=== PATIENT | female | born 1985 | race Caucasian/White ===

== ENCOUNTER 2025-03-05 13:31 | Outpatient (CLI) | payer OTHER, SELFPAY ==
[2025-03-05 14:08] LABS: Hematocrit 44.7 % (37.0-47.0); Hemoglobin 15.3 g/dL (12.0-15.0); Mean Corpuscular HGB Conc 34.2 g/dl (32-36); Mean Corpuscular Hemoglobin 29.1 pg (26-34); Mean Corpuscular Volume 85.1 fl (80-100); Mean Platelet Volume 10.3 fl (7.4-10.4); Platelet Count Result 198 k/mm3 (150-375); Red Blood Count 5.25 M/mm3 (4.2-5.4); Red Cell Distribution Width 12.7 % (11.5-14.5); White Blood Count 7.6 K/mm3 (4.5-10.0)
--- OUTSIDE RECORDS SUMMARY | 2025-03-05 14:12 | XMS_ITS | Encounter Summary ---
Author Organization [facility] Health Address [address] [place] [address] Care Team Providers Care Oil Pump Station Operator Chief Name Role Phone Unavailable Primary Care Provider Unavailabl e Encounter Details Date Type Department Care Team (Late st Contact Info) Description 11/03/2020 Lab Requisition [facility] DermPath Lab [address] [facility] [address] [facility], [place] [address] Raudel White MD [address] [place] [address] Social History Tobacco Use Types Packs/Day Years Used Date Smoking Tobacco: Never Alcohol Use Standard Drinks/Week Comments No 0 (1 standard drink = 0.6 oz pur e alcohol) Comments No Sex and Gender Information Value Date Recorded Sex Assigned at Not on file Legal Sex Female 4:24 PM CDT Gender Identity Not on file Sexual Orientation Not on file documented as of this encounter Plan of Treatment Not on file documented as of this encounter Procedures Procedure Name Priority Date/Time Associated Diagnosis Comments DERMATOPATHOLOGY Routine 10/30/2020 12:0 0 AM FORESTRY INSTRUCTOR documented in this encounter Results * DERMATOPATHOLOGY (10/30/2020 12:00 AM FORESTRY INSTRUCTOR) Case Report Dermatopathology Report Case: [id number] Authorizing Provider: Raudel White MD Collected: 10/30/2020 12:00 AM Ordering Location: [facility] DermPath Lab Received: 11/03/2020 07:00 AM Pathologist: Av Matute MD Specimens: A) - Skin, left mid back B) - Skin, mid lower back C) - Skin, right mid back 12:15 PM FORESTRY INSTRUCTOR DERMATOPATHOLOGY LABORATORY Final Diagnosis Specimen A. SKIN, left mid back: COMPOUND MELANOCYTIC NEVUS (D22.5) Specimen B. SKIN, mid lower back: COMPOUND MELANOCYTIC NEVUS (D22.5) Specimen C. SKIN, right mid back: COMPOUND MELANOCYTIC NEVUS (D22.5) 12:15 PM [facility] D[facility] at 1215 FORESTRY INSTRUCTOR Clinical History A: Nevus. Path# [id number]. B: Nevus. Path# [id number]. C: Nevus. Path# [id number]. 12:15 PM [facility] Gross Description Specimen A: Received is one formalin filled container labeled with the patient's name and designated left mid back. The specimen consists of a shave biopsy measuring [id number], bisected. Jar 0. Specimen B: Received is one formalin filled container labeled with the patient's name and designated mid lower back. The specimen consists of a shave biopsy measuring [id number], bisected. Jar 0. Specimen C: Received is one formalin filled container labeled with the patient's name and designated right mid back. The specimen consists of a shave biopsy measuring [id number], bisected. Jar 0. 12:15 PM [facility] D[facility] Microscopic Description Specimen A. SKIN, left mid back: There are nests of melanocytes at the dermal-epidermal junction and within the dermis. Specimen B. SKIN, mid lower back: There are nests of melanocytes at the dermal-epidermal junction and within the dermis. Specimen C. SKIN, right mid back: There are nests of melanocytes at the dermal-epidermal junction and within the dermis. 12:15 PM [facility] DER[facility]ORY Disclaimer An external and internal positive and negative controls are appropriate for the histochemical, immunohistochemical and immunofluorescence stain(s) in this case (if any), except where stated explicitly. The performance characteristics of the stain(s) cited in this report were developed and its performance characteristic determined by the Dermatopathology Laboratory at [facility], directed by Dr. Faviola Matute. These tests need not be, and therefore are not, approved by the [place] Food and Drug Administration. The tests are used for clinical purposes. Billing Codes Specimen Charges Stain Charges 40726 23428 64190 1 1 1 1 12:15 PM FORESTRY INSTRUCTOR DERMATOPATHOLOGY LABORATORY Embedded Images 12:15 PM FORESTRY INSTRUCTOR DERMATOPATHOLOGY LABORATORY Pathology/Cytology TISSUE SPECIMEN FROM SKIN / Unknown 10/30/2020 11/03/2020 7:00 AM FORESTRY INSTRUCTOR Miscellaneous samples (specimen) TISSUE SPECIMEN FROM SKIN / Unknown 10/30/2020 11/03/2020 7:00 AM FORESTRY INSTRUCTOR Miscellaneous samples (specimen) TISSUE SPECIMEN FROM SKIN / Unknown 10/30/2020 11/03/2020 7:00 AM FORESTRY INSTRUCTOR us Raudel White MD LAB - PATHOLOGY/CYTOLOGY ORDER LUCY Final Result DERMATOPATHOLOGY LABORATORY [facility] - Department of Dermatology [address], [address] [phone] documented in this encounter Visit Diagnoses Not on filedocumented in this encounter
--- OUTSIDE RECORDS SUMMARY | 2025-03-05 14:12 | XMS_ITS | Clinical Summary ---
Author Organization [facility] [employer] Address [address] [place] [address] Care Team Providers Care Pricing Intern Name Role Phone Unavailable Primary Care Provider Unavailabl e Source Comments [facility],non-owned Affiliates and Associated Physician Practices is amultiple site organization consisting of ambulatory clinics and hospital sitesin [place], [place], [place] and [place]. This disclosure is being madepursuant to the Care Everywhere program and may not contain all information available regarding this patient. Last updated 18.[facility] [employer] Allergies No known active allergies Medications * Be aware that medications may not be up to date on this document. Alwaysverify current medications with the patient. Vit-Fe Fumarate-FA ( VITAMIN) 28-0.8 MG tablet Take 1 Tab by mouth once daily Active folic acid (FOLVITE) 1 MG tablet Take 1 mg by mouth once daily Active Active Problems Problem Noted Date Diagnosed Date Monochorionic diamniotic twin gestation in third trimester 04/15/2016 Diet controlled gestational diabetes mellitus (GDM) in third trimester 04/15/2016 Elevated glucose level 03/29/2016 Supervision of high risk in third trim kevin 03/29/2016 Twin gestation in third trimester 03/29/2016 Family History Medical History Relation Name Comments Diabetes Maternal Aunt Diabetes Maternal Grandfather Diabetes Maternal Grandmother Hypertension Maternal Grandmother Diabetes Paternal Aunt type 1 Hypertension Paternal Aunt type 2 Relation Name Status Comments Maternal Aunt Maternal Grandfather Maternal Grandmother Paternal Aunt Social History Tobacco Use Types Packs/Day Years Used Date Smoking Tobacco: Never Alcohol Use Standard Drinks/Week Comments No 0 (1 standard drink = 0.6 oz pur e alcohol) Comments No Sex and Gender Information Value Date Recorded Sex Assigned at Not on file Legal Sex Female 4:24 PM CDT Gender Identity Not on file Sexual Orientation Not on file Last Filed Vital Signs Vital Sign Reading Time Taken Comments Blood Pressure 119/71 05/18/2016 8:40 AM CDT Pulse 92 05/18/2016 8:40 AM CDT Temperature - - Respiratory Rate - - Oxygen Saturation - - Inhaled Oxygen Concentration - - Weight 74.4 kg (164 lb) 04/27/2016 3:48 PM CDT Height 165.1 cm (5' 5) 04/27/2016 3:48 PM CDT Body Mass Index 27.29 04/27/2016 3:48 PM CDT Plan of Treatment Health Maintenance Due Date Last Done Comments LIPID TESTING 1984 MAMMOGRAM 1984 HIV SCREENING 1999 HEPATITIS C SCREENING 09/21/2002 DTAP/TDAP/TD VACCINES (1 - Tdap) 2003 HEPATITIS B VACCINE (1 of 3 - 19+ 3-dose series) 2003 COVID-19 VACCINE (1 - 2023-2 5 season) 2024 DEPRESSION SCREENING 09/19/2024 INFLUENZA VACCINE (Season Ended) 2025 ZOSTER VACCINE (1 of 2) 2034 HIB VACCINE Aged Out No longer eligi ble based on patient's age to complete this topic HPV VACCINE Aged Out No longer eligi ble based on patient's age to complete this topic MENINGOCOCCAL (Group B) VACC INE SHARED DECISION-MAKING Aged Out No longer eligibl e based on patient's age to complete this topic MENINGOCOCCAL GROUPS A/C/Y/W VACCINE Aged Out No longer eligible b ased on patient's age to complete this topic PNEUMOCOCCAL VACCINE Aged Out No long er eligible based on patient's age to complete this topic Insurance [facility]
== END 2025-03-05 13:32 | disposition home or self-care (01) ==
LOC: ANHSURGERY 13:34
PROVIDERS: PCP Family Medicine; Visit Provider Obstetrics & Gynecology
DX: N94.6 Dysmenorrhea, unspecified (principal); Z30.09 Encounter for other general counseling and advice on contraception
CPT/HCPCS: 36415; 85027

== ENCOUNTER 2025-03-07 00:28 | Day surgery (SDC) | payer OTHER, SELFPAY ==
[2025-03-04 14:32] VITALS: BMI 25.0
--- NOTE | 2025-03-04 14:40 | PC.NURSE ---
Report to the Outpatient Waiting Room, entrance under the green pavilion located off [facility], at time _0615_ on date _[phone]_. Planned Procedure Time: _0815_.? Time changes happen often and if your time is changed the preop area will call you the afternoon before. - You and your visitor will be asked to self-screen and do not enter if you have any COVID symptoms. Please call surgeon if you need to reschedule. - A mask is optional within the hospital at this time. Patients may have clear liquids (water, carbonated beverages, clear teas, apple juice) until 3 hours prior to surgery with a maximum of 20 ounces. - No food from midnight until time of surgery and no smoking, or chewing tobacco (or any form of nicotine). No chewing gum, candy or mints. Take only the following medications with a SIP of water on the morning of surgery: __None DO NOT STOP ANY OF YOUR OTHER PRESCRIPTION MEDICATIONS PRIOR TO SURGERY EXCEPT THE FOLLOWING Hold all vitamins and supplements for 3 days per anesthesiologist. Medications to discontinue per physician Date to take last dose Please no make-up, nail ghanaian, hairspray, perfume, deodorant, or body powder the day of surgery.? No jewelry (including any body piercings) or valuables the day of surgery, leave them at home.? Please take a shower or bath the night before, or the morning of, surgery with an antibacterial soap.? Wear comfortable, loose fitting clothing.? - Jewelry must be removed prior to entering the operating room.? Rings and piercings that are not removed may be cut off. - The hospital will not accept responsibility for valuables.? - Please leave all valuables, including medications, at home the day of surgery. If you are going home after surgery, a licensed local flatbed driver must drive you home.? - NO public transportation without another adult if you receive anesthesia. - We recommend that an adult stay with you for 24 hours following discharge. - We also recommend that you do not drive, make important decision, drink alcoholic beverages, or take any drugs that were not prescribed by your health care provider for at least 24 hours after your discharge time. Follow any additional instructions given to you from your surgeon. Telephone instructions given to __Megan___and asked if any additional questions and then verbalized understanding. Patient advised to call surgeon office or pre surgery nurse liaison [phone] if any additional questions.
--- NOTE | 2025-03-05 17:19 | P.HP_ITS ---
H&P: HPI History of Present Illness Date/Time: 03/05/25 17:19 39-year-old 002 female presents today for evaluation treatment of heavy irregular vaginal bleeding as well as permanent sterilization. Currently has an IUD in place, even with this in place bleeding has become heavy and more prolonged. Patient also is interested salpingectomy, discussed the permanence failure rate increased risk of ectopic and regret. Ultrasound has been performed with no significant abnormalities appreciated. Chief Complaint: Menometrorrhagia Review of Systems Review of Systems: All systems reviewed & are unremarkable except as noted in HPI and below PMFSH Past Medical History Medical History Remove/insert IUD Encounter for screening examination for sexually transmitted disease Remove/insert IUD Encounter for IUD insertion (07/20/16) Mirena insertion Gestational diabetes Surgical History Surgical History [place] teeth extracted History of (05/21/16) twin /gestational diabetes Family History Family History Grandparent Diabetes mellitus maternal grandmother Social History Social History Smoking status: Never smoker Alcohol intake: never Substance use: never Substance use type: does not use Lack of Transportation: No Lack of Food: Never True Current Housing: I Have Housing Concerned About Future Housing: No Difficulty Paying Gas/Electric Bills: No Difficulty Paying for Meds: No Currently Unemployed: No Education: Bachelor's Degree Difficulty w/ Childcare or Family Care: No Living arrangements: with family Additional living arrangements comments: Occupation/Education: occupation Additional occupation/education comments: marketing Gender identity (if verbalized by the patient): Female Sexual Orientation (if Verbalized by the Patient): Straight or Heterosexual Spiritual care concerns: No Meds Home Medications and Allergies Home Medications ?Medication ?Instructions ?Recorded ?Confirmed ?Type levonorgestrel (Mirena) 1 device intrauterine ONCE 04/27/23 03/04/25 History Allergies Allergy/AdvReac Type Severity Reaction Status Date / Time No Known Allergies Allergy Verified 03/04/25 14:31 Exam Const: General: cooperative and healthy appearing Resp: Effort & Inspection: normal respiratory effort Auscultation: clear to auscultation bilaterally Cardio: Rate: regular rate Rhythm: regular rhythm GI: Inspection: normal to inspection Auscultation: normal bowel sounds : External Female Exam: normal external appearance Speculum Exam - Vagina: normal appearance of the vagina Speculum Exam - Cervix: normal appearance of the cervix Bimanual exam- vagina & uterus: normal bimanual exam Bimanual Exam- Adnexa, other: normal adnexae Assessment and Plan Assessment and plan (1) Menometrorrhagia: Code(s): N92.1 - Excessive and frequent menstruation with irregular cycle Status: Acute (2) Dysmenorrhea: Code(s): N94.6 - Dysmenorrhea, unspecified Status: Acute (3) IUD (intrauterine device) in place: Code(s): Z97.5 - Presence of (intrauterine) contraceptive device Status: Acute (4) Encounter for female sterilization procedure: Code(s): Z30.2 - Encounter for sterilization Status: Acute Plan 1. Hysteroscopic removal of IUD 2. Diagnostic hysteroscopy with uterine curettings 3. Endometrial ablation 4. Laparoscopic bilateral salpingectomy
[2025-03-07] VITALS (8 sets, daily range): BP systolic 109–141; BP diastolic 63–90; PULSE 66–101; RESP 10–16; TEMP 36.2–36.5; O2SAT 99–100
--- OUTSIDE RECORDS SUMMARY | 2025-03-07 00:31 | XMS_ITS | Clinical Summary ---
Author Organization [facility] [employer] Address [address] [place] [address] Care Team Providers Care Dormitory Supervisor Name Role Phone Unavailable Primary Care Provider Unavailabl e Source Comments [facility],non-owned Affiliates and Associated Physician Practices is amultiple site organization consisting of ambulatory clinics and hospital sitesin [place], [place], [place] and [place]. This disclosure is being madepursuant to the Care Everywhere program and may not contain all information available regarding this patient. Last updated 18.[facility] [employer] Allergies No known active allergies Medications * [...] patient's age to complete this topic Insurance [facility]
--- OUTSIDE RECORDS SUMMARY | 2025-03-07 00:31 | XMS_ITS | Encounter Summary ---
Author Organization [facility] Health Address [address] [place] [address] Care Team Providers Care Skirt Clipper Name Role Phone Unavailable Primary Care Provider Unavailabl e Encounter Details Date Type Department Care Team (Late st Contact Info) Description 11/03/2020 Lab Requisition [facility] DermPath Lab [address] [place] [address] Raudel White MD [address] [place] [address] Social History Tobacco Use Types Packs/Day [...] Comments DERMATOPATHOLOGY Routine 10/30/2020 12:0 0 AM CINDER SNAPPER documented in this encounter Results * DERMATOPATHOLOGY (10/30/2020 12:00 AM CINDER SNAPPER) Case Report Dermatopathology Report Case: [id number] Authorizing Provider: Raudel White MD Collected: 10/30/2020 12:00 AM Ordering Location: [facility] DermPath Lab Received: 11/03/2020 07:00 AM Pathologist: Av Matute MD Specimens: A) - Skin, left mid back B) - Skin, mid lower back C) - Skin, right mid back 12:15 PM CINDER SNAPPER DERMATOPATHOLOGY LABORATORY Final Diagnosis Specimen A. SKIN, left mid back: COMPOUND MELANOCYTIC NEVUS (D22.5) Specimen B. SKIN, mid lower back: COMPOUND MELANOCYTIC NEVUS (D22.5) Specimen C. SKIN, right mid back: COMPOUND MELANOCYTIC NEVUS (D22.5) 12:[address] [facility] DERMATOPATHOLOGY LABORATORY at 1215 CINDER SNAPPER Clinical History A: Nevus. Path# [id number]. B: Nevus. Path# [id number]. C: Nevus. Path# [id number]. 12:[address] [facility] DERMATOPATHOLOGY LABORATORY Gross Description Specimen A: Received is one formalin filled container labeled with the patient's name and designated left mid back. The specimen consists of a shave biopsy measuring [id number], bisected. Jar 0. Specimen B: Received is one formalin filled container labeled with the patient's name and designated mid lower back. The specimen consists of a shave biopsy measuring [id number], bisected. Jar 0. Specimen C: Received is one formalin filled container labeled with the patient's name and designated right mid back. The specimen consists of a shave biopsy measuring [id number], bisected. Jar 0. 12:[address] [facility] DERMATOPATHOLOGY LABORATORY Microscopic Description Specimen A. SKIN, left mid back: There are nests of melanocytes at the dermal-epidermal junction and within the dermis. Specimen B. SKIN, mid lower back: There are nests of melanocytes at the dermal-epidermal junction and within the dermis. Specimen C. SKIN, right mid back: There are nests of melanocytes at the dermal-epidermal junction and within the dermis. 12:[address] [facility] DERMATOPATHOLOGY LABORATORY Disclaimer An external and internal positive and negative controls are appropriate for the histochemical, immunohistochemical and immunofluorescence stain(s) in this case (if any), except where stated explicitly. The performance characteristics of the stain(s) cited in this report were developed and its performance characteristic determined by the Dermatopathology Laboratory at [facility], directed by Dr. Faviola Matute. These tests need not be, and therefore are not, approved by the [place] Food and Drug Administration. The tests are used for clinical purposes. Billing Codes Specimen Charges Stain Charges 67698 [id number] 13782 1 1 1 1 12:15 PM CINDER SNAPPER DERMATOPATHOLOGY LABORATORY Embedded Images 12:15 PM CINDER SNAPPER DERMATOPATHOLOGY LABORATORY Pathology/Cytology TISSUE SPECIMEN FROM SKIN / Unknown 10/30/2020 11/03/2020 7:00 AM CINDER SNAPPER Miscellaneous samples (specimen) TISSUE SPECIMEN FROM SKIN / Unknown 10/30/2020 11/03/2020 7:00 AM CINDER SNAPPER Miscellaneous samples (specimen) TISSUE SPECIMEN FROM SKIN / Unknown 10/30/2020 11/03/2020 7:00 AM CINDER SNAPPER us Raudel White MD LAB - PATHOLOGY/CYTOLOGY ORDER LUCY Final Result DERMATOPATHOLOGY LABORATORY [facility] - Department of Dermatology [address] [phone] documented in this encounter Visit Diagnoses Not on filedocumented in this encounter
--- OUTSIDE RECORDS SUMMARY | 2025-03-07 00:31 | XMS_ITS | Continuity of Care Document ---
Author Organization [facility] Address [address] [place] [address] [place] [address] Phone Care Team Providers Care Law Office Assistant Name Role Phone Annabelle Severino MD Unavailable Unavailable Allergies, Adverse Reactions, Alerts Substance Reaction Status Criticality No Known allergies Medications Medication Instructions Dosage Effective Dates (start - stop) Status Comments (unknown strength) Not Available - Active Procedures Procedure Date OFFICE/OUTPATIENT VISIT, EST TISSUE EXAM BY PATHOLOGIST BIOPSY, SKIN LESION OFFICE/OUTPATIENT VISIT, EST Laser Hair Removal BIOPSY, SKIN LESION TISSUE EXAM BY PATHOLOGIST Laser Hair Removal Laser Hair Removal BioCorneum Scar Supervision BIOPSY, SKIN LESION TISSUE EXAM BY PATHOLOGIST Laser Hair Removal Laser Hair Removal Laser Hair Removal Laser Hair Removal Laser Hair Removal Laser Hair Removal TISSUE EXAM BY PATHOLOGIST BIOPSY, SKIN LESION BIOPSY, SKIN ADD-ON OFFICE/OUTPATIENT VISIT, NEW Advance Directives Directive Yes / No Effective Date File Name No Information Encounters Encounter Description Practice Location Reason(s) For Visit Diagnoses Date Provider Providers Copied on Encounter OFFICE/OUTPA TIENT VISIT, EST [facility], [address] [place], [address], [place] tel:[phone] [place] mole(s) (chief complaint) Keloid scar 4 Maycol Alanis. [address] [place] [address], [address]. tel:[phone] [facility], [address] [place] [address], [address], [place] tel:[phone] [facility] No Information 4 Laura Ulloa. [facility] [place], [place], [id number]. tel:[phone] Referring Provider: Annabelle Kaplan, [address] [place] [address], [address]. tel:[phone] OFFICE/OUTPA TIENT VISIT, [facility], [address] [place] [address], [address], [place] tel:[phone] [place] mole(s) (chief complaint) Benign neoplasm of skin of trunk, except scrotumNeopl asm of uncertain behavior of skinScreenin g for malignant neoplasms of the skin 4 Maycol Alanis. [address] [place] [address], [address]. tel:[phone] [facility], [address] [place] [address], [address], [place] tel:[phone] Elier Garrett No Information 4 Stoneciphisaac Taylor. [facility] [place], [place], [id number]. tel:[phone] Consulting Provider: Yesenia Diggs. [facility], [address] [place] [address], [address], [place] tel:[phone] Elier Garrett DN (chief complaint) Neoplasm of uncertain behavior of skin 4 Maycol Alanis. [address] [place] [address], [address]. tel:[phone] [facility], [address] [place] [address], [address], [place] tel:[phone] [facility] No Information 4 Laura Ulloa. [address] [place] [address], [id number]. tel:[phone] Referring Provider: Annabelle Kaplan, [address] [place] [address], [address]. tel:[phone] [facility], [address] [place] [address], [address], [place] tel:[phone] [place] No Information 3 Carlos Taylor. [address] [place] [address], [id number]. tel:[phone] Consulting Provider: Yesenia Diggs. [facility], [address] [place] [address], [address], [place] tel:[phone] [place] No Information 3 Carlos Taylor. [address] [place] [address], [id number]. tel:[phone] Consulting Provider: Yesenia Diggs. [facility], [address] [place] [address], [address], [place] tel:[phone] [place] lesion(s) (chief complaint) Neoplasm of uncertain behavior of skin 3 Maycol Alanis. [address] [place] [address], [address]. tel:[phone] [facility], [address] [place] [address], [address], [place] tel:[phone] [facility] No Information 3 Laura Ulloa. [facility] [place], [place], [id number]. tel:[phone] Referring Provider: Annabelle Kaplan, [address] [place] [address], [address]. tel:[phone] [facility], [address] [place] [address], [address], [place] tel:[phone] [place] No Information Sep-1 6-201 3 Stonecipher Brandon. [facility] [place], [place], [id number]. tel:[phone] Consulting Provider: Yesenia Diggs. [facility], [address] [place] [address], [address], [place] tel:[phone] [place] No Information Aug-0 9-201 3 Stonecipher Brandon. [facility] [place], [place], [id number]. tel:[phone] Consulting Provider: Yesenia Diggs. [facility], [address] [place] [address], [address], tel:[phone] [place] No Information Alan-2 8-201 3 Stonecipher Brandon. [facility] [place], [place], [id number]. tel:[phone] Consulting Provider: Yesenia Diggs. [facility], [address] [place] [address], [address], [place] tel:[phone] [place] No Information Alan-0 6-201 3 Stonecipher Brandon. [address] [place] [address], [id number]. tel:[phone] Consulting Provider: Yesenia Diggs. [facility], [address] [place] [address], [address], [place] tel:[phone] [place] No Information May-1 0-201 3 Stonecipher Brandon. [facility] [place], [place], [id number]. tel:[phone] Consulting Provider: Yesenia Diggs. [facility], [address] [place] [address], [address], [place] tel:[phone] [place] No Information Apr-2 4-201 3 Carlos Taylor. [address] [place], [place], [id number]. tel:[phone] Consulting Provider: Yesenia Diggs. [facility], [address] [place] [address], [address], [place] tel:[phone] [facility] No Information 3 Laura Ulloa. [address] [place], [place], [id number]. tel:[phone] Referring Provider: Viv Camarena, [address] [facility] [address], [place], [address]. tel:[phone] OFFICE/OUTPA TIENT VISIT, [facility], [address] [place] [address], [address], [place] tel:[phone] [place] mole(s) (chief complaint) Hair removal (chief complaint) Benign neoplasm of skin of trunk, except scrotumHirsu tismScreenin g for malignant neoplasms of the skinNeoplasm of uncertain behavior of skin 3 Migue Nam. [address] [facility] [address] , [address], [place], [address], [place]. tel:[phone] Family History Family Member Type Diagnosis Age At Onset No Information Payers Payer name Insurance type Covered republican ID Authormoniea vicenterahat(s) [facility] [id number] Social History Type Description Quantity Date Captured Comments Alcohol Use Details Unknown Caffeine Use Details Unknown Tobacco Use Status No Information Smoking Status Never smoker Sex Female Chief Complaint And Reason For Visit From encounter dated '08/21/2014 07:40'. mole(s) (chief complaint) Reason For Referral Reason For Referral No Information History Of Present Illness Encounter Date Complaint History Of Prese nt Illness No Information Functional Status Date Functional Assessmen t No Information Instructions Date Instruction Additional Infor mation No significant findi ngs upon exam, patient was reassured Avoid tanning Avoid sun exposure Wound care instructions given Patient understood a nd made an informed decision regarding treatment Discussed risks/benefits/side ef fects of treatment No significant findi ngs upon exam, patient was reassured Discussed risks/benefits/side ef fects of treatment Patient understood a nd made an informed decision regarding treatment Discussed risks/benefits/side ef fects of treatment Avoid tanning Avoid sun exposure Wound care instructions given melanoma skin biopsy Wound care instructions given Discussed risks/benefits/side ef fects of treatment Avoid tanning Avoid sun exposure No significant findi ngs upon exam, patient was reassured Assessments Type Assessment Date No Information Mental Status Date Cognitive Assessment Orientation - Medina ed to time, place, person, situation. Patient Care Teams Name Effective Dates (start - stop) Status Members No Information
--- OUTSIDE RECORDS SUMMARY | 2025-03-07 00:31 | XMS_ITS | Continuity of Care Document ---
Author Organization [facility] Address [address] [place] [address] Phone Care Team Providers Care Scratch Polisher Name Role Phone MD LAKESHA, RAUL Unavailable Unavailable Advance Directives Directive Yes / No Effective Date File Name No Information Encounters Encounter Description Practice Location Reason(s) For Visit Diagnoses Date Provider Providers Copied on Encounter [facility], [address], [place], [address], [place] tel:[phone] [facility] No Information MD RAUL CROWDER. [address], [place], [place], [id number], [place]. tel:[phone] Family History Family Member Type Diagnosis Age At Onset No Information Payers Payer name Insurance type Covered green party ID Authoriza tirahat(s) [employer] [id number] Social History Type Description Quantity Date Captured Comments Sex Female Smoking Status No Information Chief Complaint And Reason For Visit No Information History Of Present Illness Encounter Date Complaint History Of Prese nt Illness No Information Instructions Date Instruction Additional Infor mation No Information Assessments Type Assessment Date No Information
[2025-03-07] MEDS: ACETAMINOPHEN 500 MG TABLET 1000 MG PO (06:50)
[2025-03-07] MEDS: LACTATED RINGERS 1,000 ML 30 ML IV CONT ×2 (06:57→09:22)
--- NOTE | 2025-03-07 07:18 | WPDHPUPDATE1 ---
History and Physical Update Update Date/Time: 03/07/25 07:18 History and Physical has been reviewed, including an updated exam of the patient. There are NO changes in the patient's condition. Risks, benefits, and alternatives have been discussed and questions answered. Patient agrees to proceed with procedure.
--- NOTE | 2025-03-07 07:43 | P.PNAN_ITS ---
Anes - Initial Pre Proc Eval Procedure: Operation Date: 03/07/25 08:15 Proposed Procedures p Hysteroscopy with Intrauterine Device Removal, Dilation and Curettage, Helen Endometrial Ablation, - Zurdo Conn MD s Bilateral Laparoscopic Salpingectomy - Zurdo Conn MD Date/Time: 03/07/25 07:43 Surgeon: Zurdo Conn MD Pre Op Diagnosis: menometrorrhagia, desires sterilization Patient Data Age: 39 Gender: F Height: 1.65 m Weight: 71 kg Last Vital Signs Temp 36.5 C 03/07/25 06:40 Pulse 80 03/07/25 06:40 Resp 16 03/07/25 06:40 BP 141/89 H 03/07/25 06:40 Pulse Ox 99 03/07/25 06:40 O2 Del Method Room Air 03/07/25 06:40 Allergies Allergy/AdvReac Type Severity Reaction Status Date / Time No Known Allergies Allergy Verified 03/07/25 07:33 Home Medications ?Medication ?Instructions ?Recorded ?Confirmed ?Type levonorgestrel (Mirena) 1 device intrauterine ONCE 04/27/23 03/07/25 History Patient hx anesthesia problems: none Family hx anesthesia problems: none Results Review: All pre-operative results and documents have been reviewed as part of the pre- operative evaluation. [facility] Past Medical History Medical History Remove/insert IUD Encounter for screening examination for sexually transmitted disease Remove/insert IUD Encounter for IUD insertion (07/20/16) Mirena insertion Gestational diabetes Surgical History Surgical History [place] teeth extracted History of (05/21/16) twin /gestational diabetes Family History Family History Grandparent Diabetes mellitus maternal grandmother Social History Social History Smoking status: Never smoker Alcohol intake: never Substance use: never Substance use type: does not use Lack of Transportation: No Lack of Food: Never True Current Housing: I Have Housing Concerned About Future Housing: No Difficulty Paying Gas/Electric Bills: No Difficulty Paying for Meds: No Currently Unemployed: No Education: Bachelor's Degree Difficulty w/ Childcare or Family Care: No Living arrangements: with family Additional living arrangements comments: Occupation/Education: occupation Additional occupation/education comments: marketing Gender identity (if verbalized by the patient): Female Sexual Orientation (if Verbalized by the Patient): Straight or Heterosexual Spiritual care concerns: No Anes - Eval Final PreProcedure Day of Procedure 03/07/25 07:43 Patient weight: normal Heart: regular rate and rhythm Lungs: clear to auscultation Airway: Mallampati scale class II Neurological: alert and oriented Last oral intake: >/= 8 hours ASA classification: II Emergent: no Anesthetic plan: proceed Anesthesia type and monitoring: general ETT and standard monitoring Results Review: All pre-operative results and documents have been reviewed as part of the pre- operative evaluation. Informed Consent: The patient's anesthetic plan and its attendant risks and benefits were discussed with the patient/family/POA. Questions were solicited and answers provided to the satisfaction of the patient/family/POA.
[2025-03-07] MEDS: SCOPOLAMINE 1 MG PATCH 1 PATCH TRANSDERM (07:59)
[2025-03-07] MEDS: ceFAZolin 2 GM/D5W 50 ML 2 GM/50 ML BAG IVPB (08:25)
--- NOTE | 2025-03-07 09:01 | S_PTH ---
PATIENT: Emily Umaña LOC: [facility] U#:[id number] AGE/SX: 39/F ROOM: RE03/07/[address]: Zurdo Conn MD : 1985 BED: DIS: 03/07/2025 SPEC #: [id number] RECD: 03/07/25 10:52 STATUS: JOSEPHINE REQ #: [id number] HARLAN: 03/07/25 09:[address]: Zurdo Conn DEPT: [facility] Surgical RECD BY: Kiana Dugan ENTERED: 03/07/25 10:52 SP TYPE: Surgical OTHR DR: Lux Marmolejo MD Tissues: A - Fallopian Tube Bilateral B - Endometrial Curettings Procedures: Gross and Microscopic Level 2 Hematoxylin and Eosin Stain Gross and Microscopic Level 4
--- NOTE | 2025-03-07 09:14 | W.PM.PROC2 ---
Procedure Note - Detailed Date of Procedure 03/07/25 Pre-op Diagnosis 1. Menometrorrhagia 2. Retained IUD 3. Undesired fertility Post-op Diagnosis Same Procedure Performed 1. Diagnostic hysteroscopy 2. Hysteroscopic removal of IUD 3. Uterine curettings 4. Endometrial ablation 5. Laparoscopic bilateral salpingectomy Surgeon Zurdo Conn MD Anesthesia General Findings 1. Retroverted uterus, tubes ovaries without abnormality. IUD in endometrial cavity as expected location. Description of Procedure Patient prepped and draped in usual manner for this procedure. Cervical instruments were placed for uterine mobility throughout the case. Periumbilical and lower quadrant incisions were made and trocars placed under direct visualization. Using the LigaSure instrument on the mesial salpinx bilaterally tubes removed without difficulty. Uterus was noted be retroverted ovaries without abnormality and no other pelvic abnormalities or pathology was noted. Gas was allowed to escape trocars removed and incisions approximated with 4-0 Monocryl. Surgeon then moved to the vaginal area again cervix was dilated to allow the hysteroscope to be placed which revealed the IUD in its expected position and removed without difficulty. Curettings were obtained. Helen instrument was placed, cavity assessment performed, and instrument activated. At the end of the procedure hysteroscopic exam revealed destruction throughout. At this point the procedure was considered terminated and the patient was sent to recovery room in stable condition. Estimated Blood Loss 10 Drains No Packing No Pathology Yes Complications No immediate complications Condition Stable Disposition PACU [facility] Billing Surgery - Charge Forward: Surgery Billing
[2025-03-07 09:26] LABS: BEDSIDEPREGUCG Negative (Negative)
[2025-03-07] MEDS: oxyCODONE HCL (*CRX) 5 MG TAB IR PO (10:45)
== END 2025-03-07 11:15 ==
PROVIDERS: PCP Family Medicine; Visit Provider Obstetrics & Gynecology
PROC: 0U5B8ZZ Destruction of Endometrium, Via Natural or Artificial Opening Endoscopic (ICD-10-PCS; CPT 58563; principal; 2025-03-07 08:15)
PROC: (CPT 49320; 2025-03-07 08:15)
DX: N92.1 Excessive and frequent menstruation with irregular cycle (principal); Z30.432 Encounter for removal of intrauterine contraceptive device; Z30.2 Encounter for sterilization; N94.6 Dysmenorrhea, unspecified; N84.1 Polyp of cervix uteri
CPT/HCPCS: 58661; 58563; 58579; 88302; 88305; A9270; J0690; J1100; J1885; J2003; J2250; J2405; J2704; J3010; J7120